=== PATIENT | female | born 2005 ===

== ENCOUNTER 2025-03-08 10:44 | Outpatient (AMB) | payer BC, SELFPAY ==
--- NOTE | 2025-03-08 11:09 | MHC.OFFVIS ---
Vital Signs 03/08/25 11:15 Height 5 ft 5 in Weight 250 lb BMI 41.6 BP 118/80 Blood Pressure Location Lt brachial Position Sitting Respiration 16 Pulse 81 Pulse Source Pulse Oximeter Pulse Oximetry (%) 97 Oxygen Delivery Method Room Air Intake Visit Reasons: Re-Establish / Migraine Wrapper Stripper Required: No Allergies No Known Allergies Allergy (Verified 03/08/25 11:16) HPI Comments Details: Jaicnta is a 19-year-old female patient medical history anxiety obesity, IIH, and migraine who is here today to reestablish care. I was previously following her at [facility]. To review, her headaches began in childhood but became more frequent. When I first started seeing the patient she was experiencing 3-4 headaches per week often to the left side involving a shooting pain to her left eye. Headaches could also be bifrontal. She had accompanying light sensitivity, blurred vision, and nausea. She denied any visual changes at that point. She denied tinnitus. She had seen Ophthalmology not long prior to [facility] and had a normal exam. At the time of her initial visit with me, I did have some difficulty visualizing her optic discs though there was some potential haziness to her disc margins and therefore I have recommended a repeat ophthalmology follow up. I had started her on topiramate 25 mg at bedtime with plan to increase to 50 mg. I also ordered an MRI of the brain without contrast. And she was given a prescription for naratriptan 2.5 mg for breakthrough headaches. Ophthalmology notes from 06/29/2024 noted some abnormal findings suggestive of papilledema. She subsequently had a lumbar puncture on 08/05/2024 with an opening pressure of 32. At that point, she was started on acetazolamide 250 mg twice daily and topiramate was discontinued. We did advance her acetazolamide to a goal dose of 500 mg twice daily. Lab work on 09/26/2024 was stable. At the time of her last visit with me on 10/17/2024, she reported that since starting on acetazolamide back in late July 2024, she had not seen much of an improvement in her headaches and was still having daily headaches with retro-orbital pain worse on the left including blurry vision. She has been taking Excedrin daily. She did have some benefit initially with the topiramate. I recommended at time of last visit completing a CTV and switch back from the acetazolamide to topiramate with a goal dose of 50 mg twice daily. She was instructed to wean off of her acetazolamide slowly. I also advised naratriptan 2.5 mg as needed but to avoid any acute therapy more than 2-3 days per week. She tells me today that she has been taking the topiramate 50mg twice daily. She ahs overall been getting less headaches but can be up to 3 days per week on a bad week but some weeks are headache free. She has some mild light and sound sensitivity with her headaches at times but overall no profound migrainous features. She denies any pulsatile tinnitus. When she does have her headaches are headaches tend to be retro-orbital. She is not having any eye pain outside of when she has her headaches with typical retro-orbital pain. She does however note that her eyes has been very red and glossy but she does not have any pain or sensation of irritation or any itching. She does not have any excessive tearing and she has been hydrating well. She also reports that her sleep has been okay. Last ophthalmology visit: November - stable visit at that time. Next visit is likely in May. Prior medications tried: Topiramate-currently taking Acetazolamide-no benefit as 500 mg twice daily dosing Prior workup: Lumbar puncture 08/05/2024: Opening pressure of 32 CTV 10/30/2024: Normal CTV of head. No evidence of dural venous sinus thrombosis. MRI of the brain without contrast 04/07/2024: Normal brain PFSH Medical History (Updated 03/08/25 @ 11:42 by Ina Avalos CNP) Severe obesity Primary dysmenorrhea Anxiety Anemia Migraine Surgical History (Updated 03/07/25 @ 08:22 by Milagro Julien CMA) H/O knee surgery Family History (Updated 03/07/25 @ 08:21 by Milagro Julien CMA) Father Hypertension Mother Migraine Social History (Updated 03/07/25 @ 08:21 by Milagro Julien CMA) Alcohol intake: never Patient Tobacco Use Status: Never used Tobacco Use of substances other than those prescribed or required for medical reasons: No Review of Systems Const All systems reviewed & are unremarkable except as noted in HPI and below Physical Exam Const General: cooperative, healthy appearing, comfortable and no acute distress Nutritional Appearance: well nourished Orientation/consciousness: patient oriented x3 Limitations: no limitations HEENT Head: Yes normal to inspection and Yes normocephalic Eyes General: appearance normal, both eyes and all related structures Visual Moore: normal visual moore by confrontation Alignment and Position: alignment normal Periorbital: periorbital findings normal Eyelids: Yes eyelids normal Sclerae: scleral abnormal bilateral other (Mild diffuse scleral redness ) Direct Ophthalmoscopy: normal light reflex and no papilledema Neck Neck: Yes normal visual inspection and Yes full ROM General: Yes no CVA tenderness Back/Spine/Pelvis Back: no CVA tenderness Cervical Spine: normal cervical lordosis Thoracic/Lumbar Spine: thoracic and lumbar spine normal to inspection Neuro General: patient oriented x3 and tone normal Cranial nerves: Yes CN's II-XII intact bilaterally and Yes Facial sensation intact/muscles of mastication intact Cognition (Neuro): normal cognition Gait exam (Neuro): Normal gait present Motor exam (neuro): no tremor noted Sensory Exam: double simultaneous stimulation for sensation normal Romberg Test: Negative Pupils: Normal pupillary reactivity/response: bilateral Psych Appearance: grossly normal Mental Status: mental status grossly normal Speech and movement: Normal speech and movement present and Clear speech present Affect: normal affect Attitude: cooperative Thought process: Normal thought process present Thought content: Normal thought content present Insight: Good insight present (Psych) Judgement: Good judgement present (Psych) Assessment & Plan Assessment & Plan (1) IIH (idiopathic intracranial hypertension): Code(s): G93.2 - Benign intracranial hypertension Category: Medical (2) Migraine without aura and without status migrainosus, not intractable: Code(s): G43.009 - Migraine without aura, not intractable, without status migrainosus Category: Medical Plan Jacinta is a 19-year-old female patient medical history anxiety obesity, IIH, and migraine who is here today to reestablish care. I was previously following her at [facility]. She is currently being treated for IIH which has been confirmed on lumbar puncture in the past. Her recent ophthalmology exam was stable and she has been taking topiramate 50 mg twice daily and has been tolerating it well. In the past, she has failed status: Mild with no profound benefit with its use. Her funduscopic today looks okay without any obvious papilledema. She does however have scleral reddening on both sides which is diffuse but without any pain, itching, or irritation. I can not fully exclude her relationship between her eye findings and her topiramate and therefore I recommend that she sees her ophthalmology provider as soon as possible to ensure that it is safe to continue the topiramate. If her ophthalmology exam is normal without any concerns with the use of the topiramate, we can consider increasing the topiramate to 75 mg twice daily. -continue topiramate 50 mg twice daily for now -urgent ophthalmology visit. I will send my office notes to [facility] Dr. Camacho Coding Level of Care Code Est Pt Level 4 (45415) Diagnoses IIH (idiopathic intracranial hypertension) G93.2 Migraine without aura and without status migrainosus, not intractable G43.009
[2025-03-08 11:15] VITALS: BP 118/80; PULSE 81; RESP 16; O2SAT 97; BMI 41.6
--- OUTSIDE RECORDS SUMMARY | 2025-03-08 13:02 | XMS_ITS | Clinical Summary ---
Author Organization [facility] Address [address] [place] [address] Care Team Providers Care Semiconductor Processing Technician Name Role Phone Neema Esteban MD Primary Care Provider [phone] Source Comments Please note that some or all of the patient's information could have additional privacy protections. State laws allow health care providers to render certain types of treatment to minors without parental consent. Please do not assume that this information can be shared solely by obtaining just the consent of the patient's parent/guardian. Please determine if all or part of the patient's care was rendered without parent/guardian involvement. And, if so, obtain the minor's consent prior to disclosure.[facility] Allergies Active Allergy Reactions Criticality Noted Date Comments Seasonal 01/12/2020 Medications SUMAtriptan (IMITREX) 25 MG tablet PLEASE SEE ATTACHED FOR DETAILED DIRECTIONS 0 Active cefuroxime (CEFTIN) 250 MG tablet Take 250 mg by mouth 2 (two) times daily 0 Active calcipotriene (DOVONOX) 0.005 % cream Active butalbital-acet aminophen-caff 50-300-40 mg Capsule Active meloxicam (MOBIC) 15 MG tabletIndicatio ns:Arthralgia of multiple joints Take 1 tablet (15 mg) by mouth daily 30 tablet 6 0 Active Active Problems No known active problems Family History Medical History Relation Name Comments ADD / ADHD Brother Allergic rhinitis Brother Panic disorder Father Migraines Mother Relation Name Status Comments Brother Father Mother Social History Tobacco Use Types Packs/Day Years Used Date Smoking Tobacco: Never Other Needs Answer Date Recorded Anything else about your child you'd like help w ith? Not on file 12/26/2022 Share good news about positive changes: Not on f ile 12/26/2022 Comments No Sex and Gender Information Value Date Recorded Sex Assigned at Not on file Legal Sex Female 8:38 PM EDT Gender Identity Not on file Sexual Orientation Not on file Last Filed Vital Signs Vital Sign Reading Time Taken Comments Blood Pressure 121/80 01/12/2020 3:37 PM EDT Pulse 74 01/12/2020 3:37 PM EDT Temperature - - Respiratory Rate - - Oxygen Saturation - - Inhaled Oxygen Concentration - - Weight 86.7 kg (191 lb 2.2 oz) 01/12/2020 3:37 P M EDT Height 166 cm (5' 5.35 ) 01/12/2020 3:37 PM EDT Body Mass Index 31.46 01/12/2020 3:37 PM EDT Plan of Treatment Health Maintenance Due Date Last Done Comments DTaP/TDAP/TD VACCINES (1 - Tdap) 07/29/2010 ADOLESCENT HIV SCREENING 07/29/2016 COVID-19 Vaccine (2023-2 5 season) 2024 INFLUENZA (#1) 2024 NIRSEVIMAB VACCINES UNDER 8 MONTHS Aged Out No longer eligible based on patient's age to complete this topic Insurance [facility] Care Teams Semiconductor Processing Technician Relationship Specialty Start Date End Date Neema Esteban MD [address] [facility] [address] [place] [id number] PCP - General 11/01/19
--- OUTSIDE RECORDS SUMMARY | 2025-03-08 13:02 | XMS_ITS | Clinical Summary ---
Author Organization [facility] Address [address] [facility] [address] [place] [address] Phone Care Team Providers Care Coiled Tubing Operator Name Role Phone EulaliaNeema sifuentes MD Primary Care Provider [phone] Allergies Active Allergy Reactions Criticality Noted Date Comments Doxycycline-Benzoyl Peroxide 024 Pollen Extracts 01/12/2020 Medications escitalopram oxalate (LEXAPRO) 10 MG tablet Take 15 mg by mouth daily. Active levonorgestreL (KYLEENA) 17.5 mcg/24 hr (5 yrs) 19.5 mg intrauterine device 19.5 mg. Active naratriptan (AMERGE) 2.5 MG tablet TAKLE 1 TABLET BY MOUTH DAILY, NEEDED FOR MIGRAINE HEADACHE,INST R:MAY REPEAT DOSE ONCE IN 4 HOURS Active topiramate (TOPAMAX) 25 MG tablet TAKE 1 TABLET EVERY DAY AT BEDTIME FOR 7 DAYS THEN TAKE 2 TABLETS EVERY DAY AT BEDTIME Active Social History Tobacco Use Types Packs/Day Years Used Date Smoking Tobacco: Never Smokeless Tobacco: Never Alcohol Use Standard Drinks/Week Comments Not Currently 0 (1 standard drink = 0.6 oz pur e alcohol) Education Answer Date Recorded Are you interested in more education? Not on rom e 08/31/2023 Are you concerned about learning? Not on file 08/31/2023 No 08/31/2023 No 08/31/2023 Digital Access Answer Date Recorded No 08/31/2023 No 08/31/2023 Reliable internet access at home? Not on file 08/31/2023 Device with a working camera? Not on file Comments Unknown Sex and Gender Information Value Date Recorded Sex Assigned at Not on file Legal Sex Female 12:41 PM EST Gender Identity Not on file Sexual Orientation Not on file Last Filed Vital Signs Vital Sign Reading Time Taken Comments Blood Pressure 126/74 06/29/2024 1:54 PM EDT Pulse 100 06/29/2024 1:54 PM EDT Temperature - - Respiratory Rate - - Oxygen Saturation 98% 06/29/2024 1:54 PM EDT Inhaled Oxygen Concentration - - Weight 119.7 kg (264 lb) 06/29/2024 1:54 PM EDT Height 165.1 cm (5' 5 ) 06/29/2024 1:54 PM EDT Body Mass Index 43.93 06/29/2024 1:54 PM EDT Plan of Treatment Upcoming Encounters Date Type Department Care Team (Late st Contact Info) Description 06/30/2025 12:30 PM EDT Office Visit [facility] [address] [place] [address] 3rd Floor, [address] [place] [address] Michelle Crespo, [address] [address] Health Maintenance Due Date Last Done Comments Adult Td,Tdap Booster 2003 MMR VACCINES (1 of 1 - Stand rehan series) 07/29/2004 COMBINED DTaP,Tdap,Td (1 - Tdap) 07/29/2010 DEPRESSION SCREENING 2015 SMOKING Hx and SMOKELESS TOB ACCO SCREENING 07/29/2016 HPV VACCINES (1 - 3-dose series) 07/29/2018 CHLAMYDIA SCREENING 2019 MENINGOCOCCAL VACCINES (B) ( 1 of 2 - Standard) 2019 ADOLESCENT UNIVERSAL LIPID SCREENING 07/29/2020 HEPATITIS C SCREENING 07/29/2021 HIV ONE-TIME SCREENING (18-6 5 YEARS) 07/29/2021 PAP SMEAR 07/29/2024 INFLUENZA VACCINE (#1) 2024 COVID-19 VACCINE ( - 2024-2 6 season) 2024 HEPATITIS A VACCINES Aged Out No long er eligible based on patient's age to complete this topic HIB VACCINES Aged Out No longer eligi ble based on patient's age to complete this topic MENINGOCOCCAL VACCINES (ACWY) Aged Out No longer eligible based on patient's age to complete this topic PNEUMOCOCCAL VACCINES (0-49 years) Aged Out No longer eligible based on patient's age to complete this topic Medical Devices Not on file Insurance [facility] PPO EPO [employer] [facility] PPO EPO [place] [id number] [employer] [place] [address] [facility] P[facility] E[facility] [place] [facility] [place] [address] [facility] PPO EPO [address] [facility] PPO EPO [address] [facility] [place] [address] [employer] [place] E[place] [address] [facility] PPO EPO [address] [facility] PPO EPO [address] [facility] PPO EPO [address] [facility] [place] [address] [facility] [place] E[place] [facility] [place] E[place] [facility] P[facility] Care Teams Coiled Tubing Operator Relationship Specialty Start Date End Date Neema Esteban MD [address] [place] [phone] [email or web address] PCP - General Pediatrics 03/14/16 Additional Source Comments The information contained in this document represents components of the legal health record. It is not the complete legal health record.[facility]
--- OUTSIDE RECORDS SUMMARY | 2025-03-08 13:02 | XMS_ITS | Encounter Summary ---
Author Organization [facility] Address [address] [facility] [address] [place] [address] Phone Care Team Providers Care Business Performance Advisor Name Role Phone EulaliaNeema sifuentes MD Primary Care Provider [phone] Encounter Details Date Type Department Care Team ([facility] Contact Info) Description 02/08/2024 Procedure Pass [facility] Cardiovascular And Interventional Radiology [address] [place] [address] Social History Tobacco Use Types Packs/Day Years [...] on file Sexual Orientation Not on file documented as of this encounter Plan of Treatment Upcoming Encounters Date Type Department Care Team ([facility] Contact Info) Description 06/30/2025 12:30 PM EDT Office Visit [facility] [address] [facility] 3rd Floor, [address] [place] [address] Michelle Crespo, [address] [place] [address] [email or web address] documented as of this encounter Visit Diagnoses Not on filedocumented in this encounter Care Teams Business Performance Advisor Relationship Specialty Start Date End Date Neema Esteban MD [address] [place] [phone] [email or web address] PCP - General Pediatrics 03/14/16 documented as of this encounter Additional Source Comments The information contained in this document represents components of the legal health record. It is not the complete legal health record.[facility]
--- OUTSIDE RECORDS SUMMARY | 2025-03-08 13:02 | XMS_ITS | Clinical Summary ---
Author Organization [facility] Address [address] [place] [address] Phone Care Team Providers Care Glass Curvature Gauger Name Role Phone Neema Esteban MD Primary Care Provider Neema Esteban MD Unavailable [phone] Neema Esteban MD Unavailable [phone] Social History Tobacco Use Types Packs/Day Years Used Date Smoking Tobacco: Never Assessed Comments Unknown Sex and Gender Information Value Date Recorded Sex Assigned at Not on file Legal Sex Female 6:59 PM EDT Gender Identity Not on file Sexual Orientation Not on file Plan of Treatment Not on file Care Teams Glass Curvature Gauger Relationship Specialty Start Date End Date Neema Esteban MD [address] [place] [id number] PCP - General 11/24/06 Neema Esteban MD [address] [place] [id number] PCP - Clinical PCP 10/05/18 Neema Esteban MD [address] [place] [id number] PCP - Insurance PCP 11/24/06
--- OUTSIDE RECORDS SUMMARY | 2025-03-08 13:03 | XMS_ITS | Encounter Summary ---
Author Organization [facility] Address [address] [facility] [address] [place] [address] Phone Care Team Providers Care School Bus Mechanic Name Role Phone EulaliaNeema MD Primary Care Provider [phone] Encounter Details Date Type Department Care Team (Late st Contact Info) Description 12/07/2023 Procedure Pass [facility] [place] [place] [address] Social History Tobacco Use Types Packs/Day Years [...] Description 06/30/2025 12:30 PM EDT Office Visit [facility] [address] [place] [address] Floor, [address] [place] [address] Michelle Crespo DNP [address] [place] [address] [email or web address] documented as of this encounter Visit Diagnoses Not on filedocumented in this encounter Care Teams School Bus Mechanic Relationship Specialty Start Date End Date Neema Esteban MD [address] [place] [phone] [email or web address] PCP - General Pediatrics 03/14/16 documented as of this encounter Additional Source Comments The information contained in this document represents components of the legal health record. It is not the complete legal health record.[facility]
--- OUTSIDE RECORDS SUMMARY | 2025-03-08 13:03 | XMS_ITS ---
Author Name [facility] Organization Unknown History of Medication Use Medication Directions Dispensed Refills Start Date End Date Stat cefuroxime axetil 250 mg tablet TAKE 1 TABLET BY MOUTH TWICE A DAY 12/09/2023 active sumatriptan 25 mg tablet may repeat dose x1 after 2h; 11/10/2023 active amoxicillin 400 mg/5 mL oral suspension Take 12.5 mL every day by oral route for 10 days. 10/24/2021 2 completed [facility] Pinworm Medicine 50 mg/mL oral suspension Take by oral route, repeat 2 wks 06/06/2013 active amoxicillin 400 mg chewable tablet Chew 2 tablets twice a day by oral route for 14 days. 04/19/2011 2 completed Septra 200 mg-40 mg/5 mL oral suspension Take 15 mL every 12 hours by oral route for 10 days. 08/29/2009 0 completed Bactroban Nasal 2 % ointment Take 1 g every day by nasal route in the evening for 7 days. 08/29/2009 0 completed amoxicillin 600 mg-potassium clavulanate 42.9 mg/5 mL oral suspension Take 10 mL twice a day by oral route for 10 days. 03/28/2009 9 completed Incassia 0.35 mg tablet TAKE 1 TABLET BY MOUTH EVERY DAY 4 active metronidazole 500 mg tablet TAKE 1 TABLET BY MOUTH TWICE A DAY FOR 7 DAYS 4 completed sulfamethoxazole 800 mg-trimethoprim 160 mg tablet TAKE 1 TABLET BY MOUTH TWICE A DAY FOR 3 DAYS 4 active tretinoin 0.025 % topical gel APPLY TO FACE ONCE DAILY IN THE EVENING. 4 completed amoxicillin 875 mg-potassium clavulanate 125 mg tablet TAKE 1 TABLET BY MOUTH EVERY 12 HOURS FOR 10 DAYS 3 completed azithromycin 250 mg tablet TAKE 2 TABLETS BY MOUTH TODAY, THEN TAKE 1 TABLET DAILY FOR 4 DAYS 3 completed meloxicam 15 mg tablet TAKE 1 TABLET BY MOUTH EVERY DAY 3 completed triamcinolone acetonide 0.1 % topical ointment APPLY A THIN LAYER TO THE AFFECTED AREA BY TOPICAL ROUTE 2 TIMES PER DAY NEEDED 2 completed amoxicillin 500 mg capsule TAKE 1 CAPSULE BY MOUTH THREE TIMES A DAY 2 completed amoxicillin 875 mg tablet TAKE 1 TABLET BY MOUTH TWICE A DAY FOR 7 DAYS 2 completed butalbital-acetaminoph en-caffeine 50 mg-325 mg-40 mg tablet 2 completed chlorhexidine gluconate 0.12 % mouthwash PLEASE SEE ATTACHED FOR DETAILED DIRECTIONS 2 completed hydrocodone 5 mg-acetaminophen 325 mg tablet TAKE 1 TABLET BY MOUTH EVERY 6 HOURS NEEDED FOR PAIN 2 completed ibuprofen 600 mg tablet TAKE 1 TABLET BY MOUTH EVERY 6 HOURS NEEDED FOR PAIN 2 completed minocycline 50 mg capsule TAKE 1 TABLET BY MOUTH TWICE A DAY FOR 2-4 WEEKS NEEDED FOR FLARING. 2 completed Afluria Qd 2019- (36 mos up)(PF)60 mcg (15 mcg x4)/0.5 mL IM syringe ADM 0.5ML IM UTD 1 completed doxycycline hyclate 50 mg capsule TAKE 1 CAPSULE BY MOUTH TWICE A DAY WITH FOOD AND WATER 0 completed oseltamivir 75 mg capsule TAKE 1 CAPSULE BY MOUTH EVERY DAY FOR 10 DAYS 0 completed triamcinolone acetonide 0.025 % topical cream APPLY TWICE DAILY TO AFFECTED AREAS. USE TWO WEEKS ON, TAKE ONE WEEK OFF. REPEAT NEEDED. 0 completed doxycycline hyclate 100 mg capsule TAKE 1 CAPSULE BY MOUTH TWICE A DAY FOR 10 DAYS 9 completed prochlorperazine maleate 10 mg tablet 01 9 completed oxycodone 5 mg tablet 9 completed meloxicam 7.5 mg tablet QD- stop prior to surgery 8 completed Non-Aspirin Extra Strength 500 mg tablet TAKE 1 CAPLET BY MOUTH EVERY 4 HOURS NEEDED FOR PAIN 8 completed cephalexin 500 mg capsule Take 1 capsule 3 times a day by oral route for 10 days. 7 completed adapalene 0.1 % topical gel APPLY A THIN FILM TO AFFECTED AREA(S) BY TOPICAL ROUTE ONCE DAILY BEFORE BEDTIME 6 completed polymyxin B sulfate 10,000 unit-trimethoprim 1 mg/mL eye drops INSTILL 2 DROPS INTO BOTH EYES 3 TIMES DAILY FOR 5 DAYS 6 completed acetaminophen 120 mg-codeine 12 mg/5 mL oral solution active albuterol sulfate HFA 90 mcg/actuation aerosol inhaler INHALE 2 PUFFS EVERY 4 HOURS BY INHALATION ROUTE. active betamethasone, augmented 0.05 % topical ointment APPLY TO AFFECTED AREA TWICE A DAY active calcipotriene 0.005 % topical ointment active cephalexin 250 mg/5 mL oral suspension Take 5 mL 3 times a day by oral route. active clindamycin 1 % topical gel APPLY TO AFFECTED AREAS ON FACE ONCE DAILY IN THE AM. active clindamycin 1 % topical gel APPLY TO AFFECTED AREAS ON FACE ONCE DAILY IN THE AM. active Clobex 0.05 % lotion APPLY A THIN LAYER TO THE AFFECTED AREA(S) BY TOPICAL ROUTE 2 TIMES PER DAY active Cutivate 0.05 % lotion a ctive desonide 0.05 % topical ointment active escitalopram 10 mg tablet 1 tab by mouth daily active fluocinolone 0.025 % topical ointment active fluocinonide 0.05 % topical cream active fluticasone propionate 110 mcg/actuation HFA aerosol inhaler INHALE TWO PUFFS EVERY TWELVE HOURS active hydrocortisone valerate 0.2 % topical cream active Kenalog 0.147 mg/gram topical aerosol active ketoconazole 2 % shampoo active lidocaine-hydrocortiso ne-aloe vera 2.8 %-0.55 % rectal gel activ e malathion 0.5 % lotion a ctive mometasone 0.1 % topical cream Apply 1 application every day by topical route. active mupirocin 2 % topical ointment Apply a small amount to the affected area by topical route 2 times per day active nystatin 100,000 unit/gram topical cream Apply to the affected area(s) by topical route 2-4 times per day active penicillin V potassium 250 mg/5 mL oral solution active Vectical 3 mcg/gram topical ointment APPLY TO THE AFFECTED AREA(S) BY TOPICAL ROUTE 2 TIMES PER DAY IN THEMORNING AND EVENING active None recorded. (No additional sig information) completed albuterol sulfate HFA 90 mcg/actuation aerosol inhaler Inhale 2 puffs every 4 hours by inhalation route. Inhale 2 puffs every 4 hours by inhalation route. completed amoxicillin 875 mg-potassium clavulanate 125 mg tablet TAKE 1 TABLET BY MOUTH TWICE A DAY FOR 10 DAYS TAKE 1 TABLET BY MOUTH TWICE A DAY FOR 10 DAYS completed amoxicillin 875 mg-potassium clavulanate 125 mg tablet Take 1 tablet twice a day by oral route for 10 days. Take 1 tablet twice a day by oral route for 10 days. completed cefuroxime axetil 250 mg tablet TAKE 1 TABLET BY MOUTH TWICE A DAY TAKE 1 TABLET BY MOUTH TWICE A DAY completed clindamycin 1 % topical gel APPLY TO AFFECTED AREAS ON FACE ONCE DAILY IN THE AM. APPLY TO AFFECTED AREAS ON FACE ONCE DAILY IN THE AM. completed escitalopram 10 mg tablet TAKE 1 TABLET BY MOUTH EVERY DAY TAKE 1 TABLET BY MOUTH EVERY DAY completed meloxicam 15 mg tablet TAKE 1 TABLET BY MOUTH EVERY DAY TAKE 1 TABLET BY MOUTH EVERY DAY completed sumatriptan 25 mg tablet may repeat dose x1 after 2h; may repeat dose x1 after 2h; completed tretinoin 0.025 % topical gel APPLY TO FACE ONCE DAILY IN THE EVENING. APPLY TO FACE ONCE DAILY IN THE EVENING. completed triamcinolone acetonide 0.1 % topical ointment APPLY A THIN LAYER TO THE AFFECTED AREA BY TOPICAL ROUTE 2 TIMES PER DAY NEEDED APPLY A THIN LAYER TO THE AFFECTED AREA BY TOPICAL ROUTE 2 TIMES PER DAY NEEDED completed Zithromax Z-Gagandeep 250 mg tablet TAKE 2 TABLETS (500 MG) BY ORAL ROUTE ONCE DAILY FOR 1 DAY THEN 1 TABLET (250 MG) BY ORAL ROUTE ONCE DAILY FOR 4 DAYS TAKE 2 TABLETS (500 MG) BY ORAL ROUTE ONCE DAILY FOR 1 DAY THEN 1 TABLET (250 MG) BY ORAL ROUTE ONCE DAILY FOR 4 DAYS completed Problems Problem Status Onset Date Problem Type Date of Resoluti on Source Migraine active 2019-10-29 ProblemAct [facility] Pneumonia active 2018-11-19 ProblemAct [facility] Increased body mass index active 2016-09-07 ProblemAct [facility] Seborrheic dermatitis of scalp active 2020-10-20 ProblemAct [facility] Anxiety active 2015-08-23 ProblemAct [facility] History of SARS-CoV-2 active 2020-05-24 ProblemAct [facility] Ankle joint pain active 2017-02-04 ProblemAct [facility] Allergic rhinitis active ProblemAct [facility] Eczema active 2016-09-10 ProblemAct [facility] Acne active 2015-08-18 ProblemAct [facility] Psoriasis active 2017-05-10 ProblemAct [facility] Patellofemoral stress syndrome active 2017-01-03 ProblemAct [facility] Acute bacterial bronchitis active 2022-03-04 ProblemAct [facility] Anemia active 2022-12-08 ProblemAct [facility] Immunizations Vaccine Date Source Lot Number Status influenza, unspecified formulation 01/23/2023 [facility] completed SARS-COV-2 (COVID-19) vaccine, UNSPECIFIED 01/23/2023 [facility]VP completed Influenza, split virus, quadrivalent, PF 12/10/2021 [facility] [id number] completed COVID-19, mRNA, LNP-S, PF, 30 mcg/0.3 mL dose 04/02/2021 [facility] completed Influenza, split virus, quadrivalent, PF 01/12/2021 [facility] P [id number] completed meningococcal B, OMV 12/05/2020 [facility] [id number] comp leted Hep A, ped/adol, 2 dose 10/25/2020 [facility] [id number] c ompleted meningococcal B, OMV 10/25/2020 [facility] [id number] comp leted COVID-19, mRNA, LNP-S, PF, 30 mcg/0.3 mL dose 08/31/2020 [facility] completed COVID-19, mRNA, LNP-S, PF, 30 mcg/0.3 mL dose 08/10/2020 [facility] completed Hep A, ped/adol, 2 dose 11/01/2019 [facility] [id number] c ompleted meningococcal MCV4P 11/01/2019 [facility] [id number] compl eted Influenza, split virus, quadrivalent, PF 02/09/2019 [facility] P [id number] completed Influenza, split virus, quadrivalent, PF 12/21/2017 [facility] P [id number] completed Influenza, split virus, quadrivalent, PF 01/23/2017 [facility] [id number] completed HPV9 02/29/2016 [facility] [id number] completed Influenza, split virus, quadrivalent, PF 02/14/2016 [facility] [id number] completed HPV9 10/23/2015 [facility] [id number] completed HPV9 08/23/2015 [facility] [id number] completed Influenza, split virus, quadrivalent, PF 01/26/2015 [facility] [id number] completed meningococcal MCV4P 09/26/2014 [facility] [id number] compl eted Tdap 09/26/2014 [facility] [id number] completed Influenza, split virus, quadrivalent, PF 01/26/2014 [facility] P [id number] completed Influenza, split virus, quadrivalent, PF 01/10/2013 [facility] [id number] completed Influenza, split virus, triv alent, preservative 01/27/2012 [facility] [id number] completed Influenza, split virus, triv alent, preservative 03/05/2011 [facility] [id number] completed Influenza, split virus, triv alent, preservative 02/21/2010 [facility] [id number] completed Novel [id number] 03/25/2009 [facility] [id number] c ompleted Novel [id number], all formulations 02/20/2009 [facility] SMASH HAND completed influenza, unspecified formulation 12/20/2008 [facility] completed DTaP, unspecified formulation 08/30/2008 [facility] completed IPV 08/30/2008 [facility] completed varicella 08/30/2008 [facility] completed influenza, unspecified formulation 02/15/2008 [facility] completed MMR 08/17/2007 [facility] completed influenza, unspecified formulation 02/05/2007 [facility] completed DTaP, unspecified formulation 02/19/2005 [facility] completed IPV 02/19/2005 [facility] completed Hib, unspecified formulation 11/06/2004 [facility] completed MMR 11/06/2004 [facility] completed pneumococcal conjugate PCV 7 08/08/2004 [facility] completed varicella 08/08/2004 [facility] completed Hep B, unspecified formulation 05/28/2004 [facility] completed DTaP, unspecified formulation 02/13/2004 [facility] completed Hib, unspecified formulation 02/13/2004 [facility] completed pneumococcal conjugate PCV 7 02/13/2004 [facility] completed DTaP, unspecified formulation 2003 [facility] completed Hib, unspecified formulation 2003 [facility] completed IPV 2003 [facility] completed pneumococcal conjugate PCV 7 2003 [facility] completed DTaP, unspecified formulation 2003 [facility] completed Hib, unspecified formulation 2003 [facility] completed IPV 2003 [facility] completed pneumococcal conjugate PCV 7 2003 [facility] completed Hep B, unspecified formulation 2003 [facility] completed Hep B, unspecified formulation 2003 [facility] completed Encounters Encounter Type Encounter Reason Primary Diagnosis Location Date Ambulatory Encntr for general adult medical exam w/o abnormal findings Encntr for general adult medical exam w/o abnormal findings [facility] 12/06/2024 Ambulatory Migraine, unsp, not intractable, without status migrainosus Migraine, unsp, not intractable, without status migrainosus [facility] 12/09/2023 Ambulatory Dizziness and giddiness Dizziness and giddiness [facility] 11/10/2023 Ambulatory Nasal congestion Nasal congestion [facility] 08/21/2023 Ambulatory Encntr for general adult medical exam w/o abnormal findings [facility] 03/04/2023 Ambulatory Acute bronchitis, unspecified [facility] 12/03/2022 Ambulatory [facility] 03/04/2022 Ambulatory [facility] 12/10/2021 Ambulatory [facility] 12/02/2021 Ambulatory [facility] 11/15/2021 Ambulatory [facility] 11/01/2021 Ambulatory [facility] 10/24/2021 Ambulatory [facility] 01/12/2021 Care Team Organization Name Specialty Phone Email Start Date End Da te [facility] 2021 [facility] 202003/04/2022
== END 2025-03-08 11:44 | disposition home or self-care (01) ==
LOC: HO.HSM 10:44
PROVIDERS: PCP Physician Assistant Medical; Visit Provider Nurse Practitioner
DX: G93.2 Benign intracranial hypertension (principal); G43.009 Migraine without aura, not intractable, without status migrainosus
CPT/HCPCS: 99214